=== PATIENT | male | born 2000 | race Caucasian/White ===

== ENCOUNTER 2018-01-11 15:37 | Emergency (ER) | payer MEDICAID ==
[~2018-01-11] VITALS: Ht 177.8 cm; Wt 65.0 kg
[~2018-01-11 15:37] MED LIST: ALBU18HF2 IH; ALBU6.7H INH; ALBU8.5H8 IH; METH4TAB81 PO; PRED20TA PO
[2018-01-11] MEDS ORDERED: HYDROcodone/acetaminophen 10/325mg tab PO ONE (16:30)
[2018-01-11] MEDS ORDERED: HYDR-565 PO (16:52)
[2018-01-11 17:27] VITALS: BP 110/78
== END 2018-01-11 17:28 | disposition home or self-care (01) ==
LOC: ER 15:38
DX: S82.51XA Displaced fracture of medial malleolus of right tibia, initial encounter for closed fracture (principal); G43.909 Migraine, unspecified, not intractable, without status migrainosus; J45.909 Unspecified asthma, uncomplicated; Z79.899 Other long term (current) drug therapy; X58.XXXA Exposure to other specified factors, initial encounter; Y93.89 Activity, other specified; Y92.89 Other specified places as the place of occurrence of the external cause; Y99.8 Other external cause status
CPT/HCPCS: 73600; 99284; A6449

== ENCOUNTER 2018-01-14 09:39 | Outpatient (CLI) | payer MEDICAID ==
[~2018-01-14 09:39] MED LIST changes: +HYDR-565 PO
[2018-01-14 09:40] VITALS: BP 139/72
== END 2018-01-14 10:35 | disposition home or self-care (01) ==
LOC: ORTHO 09:39
PROVIDERS: ATTEND Nurse Practitioner Family
DX: S82.54XA Nondisplaced fracture of medial malleolus of right tibia, initial encounter for closed fracture (principal); S93.491A Sprain of other ligament of right ankle, initial encounter; F12.90 Cannabis use, unspecified, uncomplicated; X58.XXXA Exposure to other specified factors, initial encounter; Y93.89 Activity, other specified; Y92.89 Other specified places as the place of occurrence of the external cause; Y99.8 Other external cause status
CPT/HCPCS: 29405; A4590

== ENCOUNTER 2018-01-28 09:22 | Outpatient (CLI) | payer MEDICAID ==
[2018-01-28 09:36] VITALS: BP 127/83
[2018-01-28 09:37] VITALS: BP 127/83
== END 2018-01-28 10:10 | disposition home or self-care (01) ==
LOC: ORTHO 09:22
PROVIDERS: ATTEND Nurse Practitioner Family
DX: S93.491D Sprain of other ligament of right ankle, subsequent encounter (principal); M25.471 Effusion, right ankle; F12.90 Cannabis use, unspecified, uncomplicated; X58.XXXD Exposure to other specified factors, subsequent encounter
CPT/HCPCS: 73610; 99213

== ENCOUNTER 2018-02-25 11:39 | Outpatient (CLI) | payer MEDICAID ==
[~2018-02-25 11:39] MED LIST changes: -HYDR-565 PO
[2018-02-25 11:44] VITALS: BP 135/85
== END 2018-02-25 12:20 | disposition home or self-care (01) ==
LOC: ORTHO 11:39
PROVIDERS: ATTEND Nurse Practitioner Family
DX: S93.491D Sprain of other ligament of right ankle, subsequent encounter (principal); F12.90 Cannabis use, unspecified, uncomplicated; X58.XXXD Exposure to other specified factors, subsequent encounter
CPT/HCPCS: 29540; 73610; 99213

== ENCOUNTER 2020-04-01 09:53 | Emergency (ER) | payer MEDICAID ==
[~2020-04-01] VITALS: Ht 177.8 cm; Wt 64.0 kg
[~2020-04-01 09:53] MED LIST changes: -ALBU6.7H INH; +ALBU6.7H9 INH
[2020-04-01] MEDS ORDERED: dexamethasone sod phosphate 10mg/ml inj IM STA (10:54)
[2020-04-01] MEDS ORDERED: LORazepam 2 mg/ml vial IM ONE (10:55)
[2020-04-01] MEDS ORDERED: ondansetron 4mg rapidly disintigrating tab PO ONE (10:55)
[2020-04-01 12:07] VITALS: BP 129/83
== END 2020-04-01 12:35 | disposition home or self-care (01) ==
LOC: ER 09:53
DX: G43.909 Migraine, unspecified, not intractable, without status migrainosus (principal); J45.909 Unspecified asthma, uncomplicated; F12.90 Cannabis use, unspecified, uncomplicated; Z88.8 Allergy status to other drugs, medicaments and biological substances; Z79.899 Other long term (current) drug therapy
CPT/HCPCS: 96372; 99284; J1100; J2060

== ENCOUNTER 2020-04-04 07:44 | Emergency (ER) | payer MEDICAID ==
[~2020-04-04] VITALS: Ht 177.8 cm; Wt 68.2 kg
[2020-04-04] MEDS ORDERED: diphenhydrAMINE 50 mg/ml inj IV ONE (08:10)
[2020-04-04] MEDS ORDERED: normal saline 1000ML IV soln IVB ONE (08:10)
[2020-04-04] MEDS ORDERED: SUMAtriptan succ. 6 MG/0.5ml vial SQ ONE (08:10)
[2020-04-04] MEDS ORDERED: morphine 4 MG/ML inj SYRINge IV ONE (08:10)
[2020-04-04] MEDS ORDERED: ondansetron/PF 4mg/2ml inj IV ONE (08:10)
[2020-04-04] MEDS ORDERED: ketorolac tromethamine 15mg/ml inj. IV ONE (08:15)
[2020-04-04] MEDS ORDERED: RIZA10TA27 PO (09:29)
[2020-04-04] MEDS ORDERED: normal saline 1000ml 1,000 ML IV ONE (10:10)
[2020-04-04 10:17] VITALS: BP 114/63
== END 2020-04-04 10:44 | disposition home or self-care (01) ==
LOC: ER 07:45
DX: G43.909 Migraine, unspecified, not intractable, without status migrainosus (principal); J45.909 Unspecified asthma, uncomplicated; F12.90 Cannabis use, unspecified, uncomplicated; Z88.8 Allergy status to other drugs, medicaments and biological substances; Z79.899 Other long term (current) drug therapy
CPT/HCPCS: 96374; 96375; 99284; J1200; J1885; J2270; J2405; J7030

== ENCOUNTER 2020-04-27 13:21 | Emergency (ER) | payer MEDICAID ==
[~2020-04-27] VITALS: Ht 177.8 cm; Wt 65.0 kg
[~2020-04-27 13:21] MED LIST changes: +LIDOcaine 1% W/epiNEPHrine 1:100,000 20ml vial ONE; +RIZA10TA27 PO
[2020-04-27 13:40] VITALS: BP 130/78
[2020-04-27] MEDS ORDERED: AMOX-422 PO (14:54)
[2020-04-27] MEDS ORDERED: bacitracin 15gm ointment TP ONE (14:55)
== END 2020-04-27 15:23 | disposition home or self-care (01) ==
LOC: ER 13:22
DX: S01.21XA Laceration without foreign body of nose, initial encounter (principal); G43.909 Migraine, unspecified, not intractable, without status migrainosus; J45.909 Unspecified asthma, uncomplicated; F12.90 Cannabis use, unspecified, uncomplicated; Z88.6 Allergy status to analgesic agent; Z79.2 Long term (current) use of antibiotics; Z79.899 Other long term (current) drug therapy; W54.0XXA Bitten by dog, initial encounter; Y93.89 Activity, other specified; Y92.89 Other specified places as the place of occurrence of the external cause; Y99.8 Other external cause status
CPT/HCPCS: 12013; 99283

== ENCOUNTER 2020-05-15 10:55 | Emergency (ER) | payer MEDICAID ==
[~2020-05-15] VITALS: Ht 177.8 cm; Wt 64.9 kg
[~2020-05-15 10:55] MED LIST changes: -LIDOcaine 1% W/epiNEPHrine 1:100,000 20ml vial ONE
[2020-05-15 10:57] VITALS: BP 112/64
== END 2020-05-15 11:33 | disposition home or self-care (01) ==
LOC: ER 10:55
DX: S01.21XD Laceration without foreign body of nose, subsequent encounter (principal); J45.909 Unspecified asthma, uncomplicated; F12.90 Cannabis use, unspecified, uncomplicated; G43.909 Migraine, unspecified, not intractable, without status migrainosus; Z88.6 Allergy status to analgesic agent; Z79.899 Other long term (current) drug therapy; W54.0XXD Bitten by dog, subsequent encounter
CPT/HCPCS: 99281

== ENCOUNTER 2020-11-25 20:48 | Emergency (ER) | payer MEDICAID ==
[~2020-11-25] VITALS: Ht 177.8 cm; Wt 68.2 kg
--- NOTE | 2020-11-25 21:50 | NUR ---
CALLED [facility] AT 2150. ETA 30 MINS
[2020-11-25 22:01] LABS: EOSINOPHILS # (AUTO) 0.1 X10'3 (0-0.9)
[2020-11-25 22:03] LABS: BASOPHILS # (AUTO) 0.1 X10'3 (0-0.2); BASOPHILS % (AUTO) 0.8 % (0-1); HEMATOCRIT 45.8 % (42.0-52.0); HEMOGLOBIN 15.5 g/dl (14.0-17.9); LYMPHOCYTES # (AUTO) 1.8 X10'3 (1.1-4.8); LYMPHOCYTES % (AUTO) 21.7 % (21-51); MEAN CORPUSCULAR HEMOGLOBIN 30.9 PG (27.0-31.0); MEAN CORPUSCULAR HGB CONC 33.9 g/dL (33.0-36.5); MEAN CORPUSCULAR VOLUME 91.1 FL (78-98); MEAN PLATELET VOLUME 6.8 FL (7.4-10.4); MONOCYTES # (AUTO) 0.6 X10'3 (0-0.9); MONOCYTES % (AUTO) 7.2 % (2-12); NEUTROPHILS # (AUTO) 5.8 X10'3 (1.8-7.7); NEUTROPHILS % (AUTO) 69.3 % (42-75); PLATELET COUNT 281 X10'3 (140-440); RED BLOOD COUNT 5.03 X10'6 (4.70-6.10); RED CELL DISTRIBUTION WIDTH 13.3 % (11.5-14.5); WHITE BLOOD COUNT 8.4 X10'3 (4.5-11.0)
[2020-11-25] MEDS ORDERED: ibuprofen tablet 400 MG TABLET PO ONE (22:05)
[2020-11-25 22:17] LABS: CLARITY,URINE CLEAR (Clear); COLOR,URINE YELLOW (Yellow); GLUCOSE, URINE NEGATIVE (Neg); KETONES,URINE NEGATIVE (Neg); LEUKOCYTE ESTERASE ,URINE NEGATIVE (Neg); NITRITES, URINE NEGATIVE (Neg); OCCULT BLOOD,URINE NEGATIVE (Neg); PROTEIN,URINE NEGATIVE (Neg); UA COLLECTION TYPE VOIDED; UROBILINOGEN,URINE 0.2 E.U/dL (0.2-1.0)
[2020-11-25 22:18] VITALS: BP 121/74
[2020-11-25 22:44] LABS: ALANINE AMINOTRANSFERASE 21 U/L (12-78); ALBUMIN 4.6 G/DL (3.4-5.0); ALBUMIN/GLOBULIN RATIO 1.4 (1.1-1.5); ALKALINE PHOSPHATASE 92 IU/L (46-116); ANION GAP 9 (8-16); ASPARTATE AMINO TRANSFERASE 22 U/L (10-37); BILIRUBIN,TOTAL 0.4 MG/DL (0.1-1.0); BLOOD UREA NITROGEN 11 MG/DL (7-18); BUN/CREATININE RATIO 11.5 (5.4-32.0); CALCIUM 9.4 MG/DL (8.5-10.1); CHLORIDE 105 MMOL/L (99-107); CREATININE 0.96 MG/DL (0.60-1.10); GLUCOSE 118 MG/DL (70-104); POTASSIUM 3.9 MMOL/L (3.5-5.1); SODIUM 142 MMOL/L (135-145); TOTAL CARBON DIOXIDE 28.5 MMOL/L (24-32); TOTAL PROTEIN 7.8 G/DL (6.4-8.2); eGFR > 90 ML/MIN
== END 2020-11-25 23:43 | disposition home or self-care (01) ==
LOC: ER 20:49
DX: R10.32 Left lower quadrant pain (principal); R10.31 Right lower quadrant pain; F17.200 Nicotine dependence, unspecified, uncomplicated; F12.90 Cannabis use, unspecified, uncomplicated; G43.909 Migraine, unspecified, not intractable, without status migrainosus; J45.909 Unspecified asthma, uncomplicated; Z88.8 Allergy status to other drugs, medicaments and biological substances; Z79.899 Other long term (current) drug therapy
CPT/HCPCS: 36415; 76870; 80053; 81003; 85025; 93976; 99284

== ENCOUNTER 2020-12-13 15:48 | Emergency (ER) | payer MEDICAID ==
[~2020-12-13] VITALS: Ht 177.8 cm; Wt 68.2 kg
[2020-12-13 18:05] LABS: BASOPHILS # (AUTO) 0.1 X10'3 (0-0.2); BASOPHILS % (AUTO) 0.9 % (0-1); EOSINOPHILS % (AUTO) 0.7 % (0-6); HEMATOCRIT 48.8 % (42.0-52.0); HEMOGLOBIN 16.4 g/dl (14.0-17.9); LYMPHOCYTES # (AUTO) 1.3 X10'3 (1.1-4.8); LYMPHOCYTES % (AUTO) 22.1 % (21-51); MEAN CORPUSCULAR HEMOGLOBIN 30.9 PG (27.0-31.0); MEAN CORPUSCULAR HGB CONC 33.5 g/dL (33.0-36.5); MEAN CORPUSCULAR VOLUME 92.1 FL (78-98); MEAN PLATELET VOLUME 6.9 FL (7.4-10.4); MONOCYTES # (AUTO) 0.6 X10'3 (0-0.9); MONOCYTES % (AUTO) 9.6 % (2-12); NEUTROPHILS # (AUTO) 4.1 X10'3 (1.8-7.7); NEUTROPHILS % (AUTO) 66.7 % (42-75); PLATELET COUNT 292 X10'3 (140-440); WHITE BLOOD COUNT 6.1 X10'3 (4.5-11.0)
[2020-12-13] MEDS ORDERED: iohexol 300mg/ml 100ml inj. ONE (18:07)
[2020-12-13 18:27] LABS: ALANINE AMINOTRANSFERASE 22 U/L (12-78); ALBUMIN 4.5 G/DL (3.4-5.0); ALBUMIN/GLOBULIN RATIO 1.3 (1.1-1.5); ALKALINE PHOSPHATASE 83 IU/L (46-116); ANION GAP 6 (8-16); ASPARTATE AMINO TRANSFERASE 16 U/L (10-37); BILIRUBIN,TOTAL 0.5 MG/DL (0.1-1.0); BLOOD UREA NITROGEN 10 MG/DL (7-18); BUN/CREATININE RATIO 9.9 (5.4-32.0); CALCIUM 9.4 MG/DL (8.5-10.1); CHLORIDE 102 MMOL/L (99-107); CREATININE 1.01 MG/DL (0.60-1.10); GLUCOSE 98 MG/DL (70-104); LIPASE 105 U/L (73-393); POTASSIUM 4.5 MMOL/L (3.5-5.1); SODIUM 140 MMOL/L (135-145); TOTAL CARBON DIOXIDE 31.6 MMOL/L (24-32); TOTAL PROTEIN 8.1 G/DL (6.4-8.2); eGFR > 90 ML/MIN
--- NOTE | 2020-12-13 18:32 | NUR ---
IN CT SCAN
[2020-12-13] MEDS: ondansetron/PF 4mg/2ml inj IV ONE (18:42)
[2020-12-13] MEDS: normal saline 1000ML IV soln IVB ONE (18:43)
[2020-12-13 19:03] LABS: CLARITY,URINE CLEAR (Clear); COLOR,URINE YELLOW (Yellow); GLUCOSE, URINE NEGATIVE (Neg); KETONES,URINE NEGATIVE (Neg); LEUKOCYTE ESTERASE ,URINE NEGATIVE (Neg); NITRITES, URINE NEGATIVE (Neg); OCCULT BLOOD,URINE NEGATIVE (Neg); PROTEIN,URINE NEGATIVE (Neg); UROBILINOGEN,URINE 0.2 E.U/dL (0.2-1.0)
[2020-12-13 19:04] LABS: UA COLLECTION TYPE URINAL
[2020-12-13 20:04] VITALS: BP 117/68
== END 2020-12-13 19:25 | disposition home or self-care (01) ==
LOC: ER 15:48
DX: R10.31 Right lower quadrant pain (principal); G43.909 Migraine, unspecified, not intractable, without status migrainosus; J45.909 Unspecified asthma, uncomplicated; F12.90 Cannabis use, unspecified, uncomplicated; Z88.8 Allergy status to other drugs, medicaments and biological substances; Z79.899 Other long term (current) drug therapy
CPT/HCPCS: 36415; 74177; 80053; 81003; 83690; 85025; 96361; 96374; 99285; J2405; J7030; Q9967

== ENCOUNTER 2022-12-29 11:03 | Emergency (ER) | payer MEDICAID ==
[~2022-12-29] VITALS: Ht 177.8 cm; Wt 63.6 kg
[~2022-12-29 11:03] MED LIST changes: +ALBU6.7H14 INH; -ALBU6.7H9 INH; +ALBU8.5H17 IH; -ALBU8.5H8 IH; +RIZA-5 PO; -RIZA10TA27 PO
[2022-12-29 11:32] VITALS: BP 130/86
[2022-12-29] MEDS ORDERED: ondansetron 4mg rapidly disintigrating tab PO ONE (12:10)
[2022-12-29] MEDS ORDERED: normal saline 1000ml 1,000 ML IV ONE (12:10)
== END 2022-12-29 13:24 | disposition home or self-care (01) ==
LOC: ER 11:04
DX: R05.1 Acute cough (principal); R11.2 Nausea with vomiting, unspecified; G43.909 Migraine, unspecified, not intractable, without status migrainosus; J45.909 Unspecified asthma, uncomplicated; F12.90 Cannabis use, unspecified, uncomplicated; Z88.6 Allergy status to analgesic agent; Z79.899 Other long term (current) drug therapy
CPT/HCPCS: 96360; 99283; J7030